=== PATIENT | male | born 1970 | race Native Hawaiian/Other Pacific Islander ===

== ENCOUNTER 2019-03-30 13:06 | Outpatient (CLI) | payer BC ==
[~2019-03-30 13:06] MED LIST: LISI20TA31 PO
[2019-03-30 13:45] LABS: POTASSIUM 4.6 mmol/L (3.6-5.2)
== END 2019-03-30 20:33 | disposition home or self-care (01) ==
LOC: CT 13:06
PROVIDERS: Nurse Practitioner Family
DX: R10.30 Lower abdominal pain, unspecified (principal)
CPT/HCPCS: 36415; 80053; 82150; 83690; Q9963

== ENCOUNTER 2021-10-10 08:09 | Outpatient (CLI) | payer BC ==
[~2021-10-10] VITALS: Ht 170.2 cm; Wt 90.7 kg
== END 2021-10-10 19:58 | disposition home or self-care (01) ==
LOC: NM 08:09
PROVIDERS: ATTEND Nurse Practitioner Family
DX: I10 Essential (primary) hypertension (principal)
CPT/HCPCS: A9500; J2785

== ENCOUNTER 2022-12-21 14:19 | Emergency (ER) | payer BC ==
[~2022-12-21] VITALS: Ht 170.2 cm; Wt 95.3 kg
[2022-12-21 14:48] LABS: PLATELET COUNT 237 K/uL (142-355)
[2022-12-21 15:00] LABS: POTASSIUM 3.7 mmol/L (3.6-5.2)
[2022-12-21 17:10] VITALS: BP 160/83; TEMP 98
== END 2022-12-21 17:10 | disposition home or self-care (01) ==
LOC: ED 14:19
PROVIDERS: Internal Medicine
DX: I61.9 Nontraumatic intracerebral hemorrhage, unspecified (principal); I10 Essential (primary) hypertension; V89.2XXA Person injured in unspecified motor-vehicle accident, traffic, initial encounter
CPT/HCPCS: 80053; 80307; 81002; 85027; 96365; 99285; J3490; Q9963